=== PATIENT | male | born 1960 | race Caucasian/White ===

== ENCOUNTER 2020-06-11 17:25 | Emergency (ER) | payer MEDICARE ==
[~2020-06-11] VITALS: Ht 177.8 cm; Wt 90.0 kg
[~2020-06-11 17:25] MED LIST: ALPHA LIPOIC A200 MG; ARICEPT10 MG PO; B121000 MCG PO; CO Q-10200 M1 PO; D31000 UNIT PO; DONEPEZIL10 MG PO; FISH OIL1000 M2 PO; L-ARGININE500 MG PO; ZOLOFT100 MG PO; ZOLOFT50 MG PO; [UNRECOGNIZED DRUG - CODE] XX; [UNRECOGNIZED DRUG - OTHER] XX; [UNRECOGNIZED DRUG - REMARK] PO
[2020-06-11] MEDS ORDERED: DONEPEZIL5 MG PO (17:46)
[2020-06-11] MEDS ORDERED: DEPAKOTE ER250 MG PO (17:46)
[2020-06-11] MEDS ORDERED: LORAZEPAM0.5 MG PO (17:47)
[2020-06-11] MEDS ORDERED: FEXOFENADINE180 MG PO (17:47)
[2020-06-11] MEDS ORDERED: SERTRALINE50 MG PO (17:49)
[2020-06-11 18:03] LABS: HEMATOCRIT 37.4 % (39.0-50.0); HEMOGLOBIN 12.1 g/dl (14.0-18.0); IMMATURE GRANULOCYTES 0.2 % (0.0-5.0); MEAN CELL VOLUME 96.4 fL CALC (80.0-100.0); MEAN CORPUSCULAR HGB 31.2 pG CALC (26.0-32.0); MEAN CORPUSCULAR HGB CONC 32.4 g/dL CAL (32.0-36.0); NEUT# 4.14 thou/uL (1.82-7.42); RED BLOOD COUNT 3.88 mill/uL (4.70-6.10); RED CELL DISTRI WIDTH 12.4 % (11.5-15.5)
[2020-06-11 18:21] LABS: ANION GAP 9 (6-22 (CALC)); BUN 15 mg/dL (9-20); BUN/CREATININE RATIO 16 (12-20 (CALC)); CARBON DIOXIDE 28 mmol/l (22-30); CHLORIDE 103 mmol/l (95-108); GFR > 60 ML/MIN (>=60 (CALC)); GFR FOR AFR.AMER. > 60 ML/MIN (>=60 (CALC)); POTASSIUM 3.6 mmol/l (3.5-5.1); SODIUM 137 mmol/l (137-146)
[2020-06-11 18:23] LABS: URINE BILIRUBIN - DIPSTICK NEGATIVE (NEGATIVE); URINE BLOOD DIPSTICK TRACE-INTACT (NEGATIVE); URINE COLOR YELLOW; URINE GLUCOSE - DIPSTICK NEGATIVE (NEGATIVE); URINE KETONE 15 mg/dL (NEGATIVE); URINE LEUK ESTERASE NEGATIVE (NEGATIVE); URINE NITRITE - DIPSTICK NEGATIVE (Negative); URINE PROTEIN - DIPSTICK NEGATIVE (NEG-TRACE); URINE SPECIFIC GRAVITY 1.025; URINE UROBILINOGEN - DIPSTICK 0.2 E.U./dL (0.2)
[2020-06-11 19:18] VITALS: BP 129/68
== END 2020-06-11 20:20 ==
LOC: ED 17:25
PROVIDERS: Student in an Organized Health Care Education/Training Program
DX: R31.9 Hematuria, unspecified (principal); G30.9 Alzheimer's disease, unspecified; F02.80 Dementia in other diseases classified elsewhere, unspecified severity, without behavioral disturbance, psychotic disturbance, mood disturbance, and anxiety; Z20.828 Contact with and (suspected) exposure to other viral communicable diseases

== ENCOUNTER 2020-11-02 19:58 | Emergency (ER) | payer MEDICARE ==
[~2020-11-02] VITALS: Ht 177.8 cm; Wt 82.0 kg
[~2020-11-02 19:58] MED LIST changes: +DEPAKOTE ER250 MG PO; +DONEPEZIL5 MG PO; +FEXOFENADINE180 MG PO; +LORAZEPAM0.5 MG PO; +SERTRALINE50 MG PO
[2020-11-02] MEDS ORDERED: TAMSULOSIN HCL0.4 MG PO (20:55)
[2020-11-02 20:56] LABS: HEMATOCRIT 37.9 % (39.0-50.0); HEMOGLOBIN 12.3 g/dl (14.0-18.0); MEAN CELL VOLUME 98.4 fL CALC (80.0-100.0); MEAN CORPUSCULAR HGB 31.9 pG CALC (26.0-32.0); MEAN CORPUSCULAR HGB CONC 32.5 g/dL CAL (32.0-36.0); RED BLOOD COUNT 3.85 mill/uL (4.70-6.10)
[2020-11-02] MEDS ORDERED: TRIAMCINOLON0.11 EX (20:56)
[2020-11-02 21:13] LABS: ALBUMIN 4.1 g/dL (3.2-5.0); ALKALINE PHOSPHATASE 46 u/l (38-126); ANION GAP 9 (6-22 (CALC)); BILIRUBIN, TOTAL 0.3 mg/dL (0.0-1.4); BUN 18 mg/dL (9-20); BUN/CREATININE RATIO 24 (12-20 (CALC)); CARBON DIOXIDE 31 mmol/l (22-30); CHLORIDE 103 mmol/l (95-108); CREATININE 0.8 mg/dL (0.7-1.3); GFR > 60 ML/MIN (>=60 (CALC)); GFR FOR AFR.AMER. > 60 ML/MIN (>=60 (CALC)); POTASSIUM 3.8 mmol/l (3.5-5.1); SGOT/AST 26 u/l (17-59); SODIUM 139 mmol/l (137-146); TOTAL PROTEIN 6.7 g/dL (6.3-8.2)
[2020-11-02 22:50] VITALS: BP 109/59
[2020-11-02] MEDS ORDERED: ORPHENADRINE100 MG PO (22:50)
[2020-11-02] MEDS ORDERED: PERCOCET 5/325M1 TAB PO (22:50)
== END 2020-11-02 22:50 | disposition home or self-care (01) ==
LOC: ED 19:58
PROVIDERS: Emergency Medicine
DX: S39.012A Strain of muscle, fascia and tendon of lower back, initial encounter (principal); G30.9 Alzheimer's disease, unspecified; F02.80 Dementia in other diseases classified elsewhere, unspecified severity, without behavioral disturbance, psychotic disturbance, mood disturbance, and anxiety; F32.9 Major depressive disorder, single episode, unspecified; X58.XXXA Exposure to other specified factors, initial encounter; Y93.83 Activity, rough housing and horseplay; Y92.129 Unspecified place in nursing home as the place of occurrence of the external cause; Z87.442 Personal history of urinary calculi
CPT/HCPCS: Q9967

== ENCOUNTER 2021-01-26 18:48 | Emergency (ER) | payer MEDICARE ==
[~2021-01-26] VITALS: Ht 177.8 cm; Wt 77.0 kg
[~2021-01-26 18:48] MED LIST changes: -DONEPEZIL5 MG PO; +ORPHENADRINE100 MG PO; +PERCOCET 5/325M1 TAB PO; +TAMSULOSIN HCL0.4 MG PO; +TRIAMCINOLON0.11 EX
[2021-01-26 19:46] LABS: HEMATOCRIT 36.7 % (39.0-50.0); HEMOGLOBIN 11.9 g/dl (14.0-18.0); IMMATURE GRANULOCYTES 0.1 % (0.0-5.0); MEAN CELL VOLUME 98.7 fL CALC (80.0-100.0); MEAN CORPUSCULAR HGB CONC 32.4 g/dL CAL (32.0-36.0); NEUT# 4.59 thou/uL (1.82-7.42); RED BLOOD COUNT 3.72 mill/uL (4.70-6.10); RED CELL DISTRI WIDTH 12.8 % (11.5-15.5)
[2021-01-26 20:02] LABS: ALBUMIN 4.3 g/dL (3.2-5.0); ALKALINE PHOSPHATASE 52 u/l (38-126); ANION GAP 11 (6-22 (CALC)); BUN 21 mg/dL (9-20); BUN/CREATININE RATIO 28 (12-20 (CALC)); CARBON DIOXIDE 28 mmol/l (22-30); CHLORIDE 105 mmol/l (95-108); CREATININE 0.8 mg/dL (0.7-1.3); GFR > 60 ML/MIN (>=60 (CALC)); GFR FOR AFR.AMER. > 60 ML/MIN (>=60 (CALC)); POTASSIUM 3.8 mmol/l (3.5-5.1); SODIUM 140 mmol/l (137-146); TOTAL PROTEIN 6.9 g/dL (6.3-8.2)
[2021-01-26 20:03] LABS: BILIRUBIN, TOTAL 0.6 mg/dL (0.0-1.4); SGOT/AST 46 u/l (17-59)
[2021-01-26] MEDS ORDERED: QUETIAPINE FUMA25 MG PO (20:11)
[2021-01-26] MEDS ORDERED: PRO STAT PO (20:13)
[2021-01-26 21:47] LABS: URINE BILIRUBIN - DIPSTICK NEGATIVE (NEGATIVE); URINE BLOOD DIPSTICK NEGATIVE (NEGATIVE); URINE CLARITY CLEAR; URINE COLOR YELLOW; URINE GLUCOSE - DIPSTICK NEGATIVE (NEGATIVE); URINE KETONE 15 mg/dL (NEGATIVE); URINE LEUK ESTERASE NEGATIVE (Negative); URINE NITRITE - DIPSTICK NEGATIVE (Negative); URINE PROTEIN - DIPSTICK NEGATIVE (NEG-TRACE); URINE UROBILINOGEN - DIPSTICK 0.2 E.U./dL (0.2)
[2021-01-26] MEDS ORDERED: PERCOCET 5/325M1 TAB PO (23:19)
[2021-01-26 23:49] VITALS: BP 123/66
== END 2021-01-27 ==
LOC: ED 18:48
DX: M54.5 Low back pain (principal); G30.9 Alzheimer's disease, unspecified; F02.80 Dementia in other diseases classified elsewhere, unspecified severity, without behavioral disturbance, psychotic disturbance, mood disturbance, and anxiety; F32.9 Major depressive disorder, single episode, unspecified
CPT/HCPCS: Q9967